=== PATIENT | male | born 1965 | race Hispanic/Latino ===

== ENCOUNTER 2025-06-02 12:14 | Inpatient (IN) | payer BC ==
[~2025-06-02] VITALS: Ht 175.3 cm; Wt 92.8 kg
--- NOTE | 2025-06-02 13:40 | NUR ---
Patient arrived to the unit via EMS stretcher. He was transferred to the bed and oriented to the room. Initial set of vitals was taken. Patient requested to have all four side rails on the bed up as he utilizes them for mobility purposes. Patient left with bed lock and low, with all four side rails up, and in no distress.
[2025-06-02 14:30] VITALS: O2SAT 99
[2025-06-02] MEDS ORDERED: PROCHLORPERAZINE 10MG/2ML INJ IV PRN (14:30)
[2025-06-02] MEDS ORDERED: PHENOL 177 ML BOTTLE PO PRN (14:30)
[2025-06-02] MEDS ORDERED: GLUCAGON 1MG KIT 1 MG ML IM PRN (14:30)
[2025-06-02] MEDS ORDERED: MAGNESIUM 2GM PREMIX 50ML 50 ML IV PRN (14:30)
[2025-06-02] MEDS ORDERED: PoTASSium chl 10% ELIXIR 20MEQ 20 MEQ/15 ML UDCUP PO PRN (14:30)
[2025-06-02] MEDS ORDERED: BACLOFEN 10 MG TABLET PO PRN (14:30)
[2025-06-02] MEDS ORDERED: DIPHENHYDRAMINE HCL 50 MG CAPSULE PO PRN (14:30)
[2025-06-02] MEDS ORDERED: DEXTROSE 50%-WATER 50 ML DISP.SYRIN IV PRN (14:30)
[2025-06-02 14:35] VITALS: BP 101/70; PULSE 86; RESP 16; TEMP 97.5
[2025-06-02 20:00] VITALS: BP 126/67; PULSE 94; RESP 16; TEMP 98.2; O2SAT 98
[2025-06-02] MEDS: ARGIN/GLUT/CAHMB/COLLAG/MV-MIN 1 EACH POWD.PACK PO SCH (21:00)
[2025-06-03] VITALS (25 sets, daily range): BP systolic 92–133; BP diastolic 59–80; PULSE 53–120; RESP 16–20; TEMP 96–97.9; O2SAT 94
[2025-06-03 08:36] LABS: IMMATURE GRANULOCYTE ABSOLUTE 0.04 K/uL (0-1); NUCLEATED RED BLOOD CELLS 0.0 % (0.0-0.19); PLATELET COUNT (AUTO) 200 K/uL (130-400); RED BLOOD CELL COUNT(AUTO) 5.16 MIL/uL (4.50-6.20); RED CELL DISTRIBUTION WIDTH 15.4 % (11.0-15.5); WHITE BLOOD COUNT (AUTO) 5.0 K/uL (4.8-10.8)
[2025-06-03] MEDS: LACTATED RINGERS 1000ML 1,000 ML IV ONE (08:40)
[2025-06-03 08:48] LABS: INR 0.96 (0.85-1.15)
[2025-06-03] MEDS: ENOXAPARIN SODIUM 40 MG/0.4 ML SYRINGE SQ SCH (08:53)
[2025-06-03 08:54] LABS: CREATININE 0.7 mg/dL (0.5-1.3); GLOMERULAR FILTR. RATE CALC 107.0 mL/min (>90); GLUCOSE,RANDOM 98.0 mg/dL (70-105); SODIUM SERUM 142.0 mmol/L (136-145); UREA NITROGEN, BLOOD 19.0 mg/dL (7-18)
[2025-06-03 08:59] LABS: ASPARTATE AMINOTRANSFERASE 25.0 U/L (10-37); TOTAL PROTEIN, SERUM 7.1 g/dL (6.0-8.3)
[2025-06-03] MEDS ORDERED: MIDAZOLAM HCL 1 MG/ML 2ML VIAL ONE (09:09)
--- NOTE | 2025-06-03 11:00 | NUR ---
PT OFF FLOOR FOR SURGERY. Addendum: 06/03/25 at 1626 by HOLDEN BORREGO PT Amended: Links added.
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
[2025-06-03] MEDS ORDERED: NEOSTIGMINE METHYLSULFATE 1MG/ML IV ONE (12:02)
[2025-06-03] MEDS ORDERED: GLYCOPYRROLATE 0.2 MG/ML 5 ML VIAL ONE (12:02)
--- NOTE | 2025-06-03 12:48 | OP ---
Operative Note: DATE OF PROCEDURE: 06/03/25 SURGEON: HA ABURTO MD ENTERPRISE MANAGER: [] ANESTHESIA: General endotracheal ANESTHESIOLOGIST/DIRECTOR OF FUNDRAISING: Bony JAIME PREOPERATIVE DIAGNOSIS: Sacral wounds POSTOPERATIVE DIAGNOSIS: Same needing diversion SYNOPSIS: [] PROCEDURE: Laparoscopic lysis of adhesions for greater than 30 minutes, laparoscopic loop colostomy creation ESTIMATED BLOOD LOSS: 10 cc INDICATIONS: Patient with nonhealing sacral ulcer. Needing diversion Devices left in place is ostomy bridge Specimen removed: Subcutaneous tissue DESCRIPTION OF PROCEDURE: The patient is brought to the operating room placed on the operating table in a supine position. Once general endotracheal anesthesia was achieved patient's abdomen is prepped and draped in sterile fashion. We then proceeded to create a transverse incision at the right upper quadrant. With a 5 mm Optiview went through the abdominal wall and into the abdominal cavity. Obtain pneumoperitoneum. There was large amount of omental adhesions. I placed another 5 mm trocar in the right flank. We were able to take down all the adhesions down. This took about 35-40 minutes to take down all the adhesions to the abdominal wall and in the pelvis. Once all the adhesi ons were taken down we identified the sigmoid colon. I placed another 5 mm trocar. And then we mobilized the sigmoid colon from lateral to medial. Making sure that we had enough length and once we had enough length we then created a circular incision at the left lower quadrant over top of the rectus muscle and on doing so there were some implants in the subcutaneous tissues so therefore the subcutaneous tissue was sent for specimen. We brought up the sigmoid colon and a loop fashion. Placed a bridge underneath the loop of colon to a avoid retraction. We then proceeded to mature it in a Leticia fashion with 3-0 Vicryl pop offs. With the laparoscope we confirmed that it was not twisted. We then removed all our trocars. Skin incisions were closed with a 4-0 Monocryl and Dermabond. Ostomy appliance were applied over top. Patient condition stable. All counts correct x2 at the end of the procedure HA ABURTO MD Jun 03, 2025 12:48
--- NOTE | 2025-06-03 13:55 | NUR ---
DCP:HOME Pt was previously at [facility] before coming into the hospital. Pt states that otherwise he lives alone in his home. Pt does use a wheelchair to ambulate. Pt does not report any home health or provider services. Pt states that he can complete ADLs independently. PCP is FANNY Leon and [facility] needs. At [place] pt states that he believes he is going back to [facility]. Addendum: 06/03/25 at 1359 by ARIEL CHANG SS Amended: Links added.
[2025-06-03] MEDS: LACTATED RINGERS 1000ML 1,000 ML IV SCH (14:20)
[2025-06-03] MEDS: SIMETHICONE 80 MG TAB.CHEW PO SCH (14:21)
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
--- NOTE | 2025-06-03 15:45 | NUR ---
[facility] Consult: Patient assessed by wound healing team. See wound assessment. Assessment and recommendations provided to primary nurse for vashe to left gluteal fold and medihoney to coccyx/ Education provided tp patient r/t wound, wound care treatment, and pressure ulcer intervention. Addendum: 06/05/25 at 1225 by FELIX ATWOOD RN RN/LINO Amended: Links added.
[2025-06-03] MEDS: BALSAM PERU/CASTOR OIL 60 GM TUBE TP SCH (20:34)
[2025-06-04] VITALS (7 sets, daily range): BP systolic 92–123; BP diastolic 51–75; PULSE 85–116; RESP 16–24; TEMP 97.5–98.8; O2SAT 98–100
[2025-06-04 05:21] LABS: NUCLEATED RED BLOOD CELLS 0.0 % (0.0-0.19); PLATELET COUNT (AUTO) 179.0 K/uL (130-400); RED BLOOD CELL COUNT(AUTO) 4.53 MIL/uL (4.50-6.20); RED CELL DISTRIBUTION WIDTH 15.7 % (11.0-15.5); WHITE BLOOD COUNT (AUTO) 8.1 K/uL (4.8-10.8)
[2025-06-04 05:32] LABS: CREATININE 0.7 mg/dL (0.5-1.3); GLOMERULAR FILTR. RATE CALC 107.0 mL/min (>90); GLUCOSE,RANDOM 99.0 mg/dL (70-105); SODIUM SERUM 140.0 mmol/L (136-145); UREA NITROGEN, BLOOD 17.0 mg/dL (7-18)
[2025-06-04] MEDS: PoTASSium chloRIDE 20MEQ ER 20 MEQ ERTAB PO PRN (06:46)
--- NOTE | 2025-06-04 09:16 | NUR ---
PT IS SITTING ON THE BED. NO S/S OF DISTRESS. STOMA DARK RED AND BEEFY. PLASTIC FOLD UNDER STOMA SECURED WITH STITCHES. SANGUINEOUS DRAINAGE NOTED FROM THE STOMA INSIDE THE COLOSTOMY BAG. 3 INCISIONS ON THE ABDOMEN WITH DERMABOND OPEN TO AIR. NO DRAINAGE. SUPRAPUBIC INSERTION SITE SECURED WITH GAUZE. NO DRAINAGE NOTED. CALL LIGHT WITHIN REACH. BED LOCKED AND LOW.
[2025-06-04] MEDS: HONEY 1 APPL/ML TUBE TP SCH (14:37)
--- NOTE | 2025-06-04 15:09 | PN ---
GENERAL SURGERY PROGRESS NOTE Date/Time Patient Seen: [06/04/2025 11:45 AM ] Interval History: [59-year-old male, postop day 1., laparoscopic loop colostomy creation for diversion of sacral ulcer by Dr. Pena Patient having expected soreness over surgical incision Colostomy producing a small amount of gas and bloody output Patient tolerating diet without any nausea or vomiting WBCs 8.1 H&H 12.3 and 38.5 ] Current Medications Medications (Trade) Dose Ordered Sig/Rj Route Start Time Stop Time Status Last Admin Dose Admin Docusate Sodium (COLace 100MG CAP) 100 mg BID PO 06/02/25 21:00 07/02/25 20:59 06/04/25 09:07 100 MG Enoxaparin Sodium (Lovenox) 40 mg DAILY SQ 06/03/25 09:00 07/03/25 08:59 06/04/25 09:09 40 MG Lactated Ringer's 1,000 ml @ 75 mls/hr [id number] IV 06/03/25 13:00 07/03/25 12:59 06/04/25 02:35 75 MLS/HR Leptospermum Honey (Medihoney) 1 appl DAILY TP 06/04/25 09:00 07/04/25 08:59 06/04/25 14:37 1 APPL Simethicone (Mylicon) 80 mg TID PO 06/03/25 14:00 07/03/25 13:59 06/04/25 14:37 80 MG Wound Care/ Dressing Products (Venelex Ointment) 1 GRAM TO AFFECTED AREA TW... BID TP 06/03/25 21:00 07/03/25 20:59 06/04/25 14:37 1 GM Physical Examination: GENERAL: [No acute distress, male, comfortably resting in bed.] HEAD: [Normocephalic.] EYES: [Normal conjunctiva] ENT: [Hearing grossly intact.] NECK: [Supple.] LUNGS: [Clear breath sounds bilaterally.] HEART: [Normal rate and rhythm] VASC: [Peripheral pulses +2 bilaterally.] ABD: [Bowel sounds normal, soft, left colostomy with healthy stoma, RLQ suprapubic saba in place.] EXT: [No edema.] SKIN: [Left buttock wound with macerated edges about 1.2 cm in depth, sacral wound with large amount of fibrous tissue to entire wound bed and some maceration to wound edges.] NEURO: [Awake, alert, and oriented x3. Quadraplegic] Vital Signs (last 8hr) Date Time Temp Pulse Resp B/P (MAP) Pulse Ox O2 Delivery O2 Flow Rate FiO2 06/04/25 11:03 98.8 85 18 104/67 98 Room Air 06/04/25 09:17 98 Room Air* 0 21 06/04/25 07:51 98.1 107 18 104/51 98 Room Air Laboratory: [ ] Hematology Labs: Test 06/04/25 05:06 06/03/25 08:26 Range/Units White Blood Count 8.1 # 4.8-10.8 K/uL Red Blood Count 4.53 4.50-6.20 MIL/uL Hemoglobin 12.3 L 14.0-18.0 g/dL Hematocrit 38.5 L 42-54 % Mean Corpuscular Volume 85.0 79-99 fL Mean Corpuscular Hemoglobin 27.2 27.0-33.0 pg Mean Corpuscular Hemoglobin Concent 31.9 L 32.0-36.0 g/dL Red Cell Distribution Width 15.7 H 11.0-15.5 % Platelet Count 179 130-400 K/uL Mean Platelet Volume 10.6 H 7.5-10.5 fL Nucleated Red Blood Cells 0.0 0.0-0.19 % Immature Granulocyte % (Auto) 0.8 0-1 % Neutrophils (%) (Auto) 51.6 40.0-77.0 % Lymphocytes (%) (Auto) 30.6 21.0-51.0 % Monocytes (%) (Auto) 8.1 3.0-13.0 % Eosinophils (%) (Auto) 8.1 H 0.0-8.0 % Basophils (%) (Auto) 0.8 0.0-5.0 % Neutrophils # (Auto) 2.6 1.8-7.7 K/uL Lymphocytes # (Auto) 1.5 1.0-4.8 K/uL Monocytes # (Auto) 0.4 0.1-1.0 K/uL Eosinophils # (Auto) 0.41 0.00-0.70 K/uL Basophils # (Auto) 0.04 0.00-0.20 K/uL Absolute Immature Granulocyte (auto 0.04 0-1 K/uL Chemistry Labs: Test 06/04/25 05:06 06/03/25 08:26 Range/Units Sodium Level 140 136-145 mmol/L Potassium Level 3.7 3.5-5.1 mmol/L Chloride Level 105 101-111 mmol/L Carbon Dioxide Level 27 21-32 mmol/L Blood Urea Nitrogen 17 7-18 mg/dL Creatinine 0.7 0.5-1.3 mg/dL Glomerular Filtration Rate Calc 107 >90 mL/min Random Glucose 99 70-105 mg/dL Total Calcium 8.2 L 8.5-10.1 mg/dL Magnesium Level 2.00 1.80-2.40 mg/dL Total Bilirubin 0.3 0.2-1.0 mg/dL Aspartate Amino Transf (AST/SGOT) 25 10-37 U/L Alanine Aminotransferase (ALT/SGPT) 46 12-78 U/L Alkaline Phosphatase 132 50-136 U/L Total Protein 7.1 6.0-8.3 g/dL Albumin 3.3 L 3.5-5.0 g/dL Coagulation Labs: Test 06/03/25 08:26 Range/Units Prothrombin Time 10.2 9.6-11.6 SEC Prothromb Time International Ratio 0.96 0.85-1.15 Activated Partial Thromboplast Time 35.7 H 26.3-35.5 SEC Diagnostics / Radiology: [Copy/Paste Echos/Imaging Report here] Impression and Plan: [ 59-year-old male, postop day 1., laparoscopic loop colostomy creation for diversion of sacral ulcer by Dr. Pena Colostomy is producing a small amount of gas with some bloody output Patient tolerating diet without any nausea or vomiting Stable H&H Continue with wound care to left buttock and sacral area as recommended by wound care team Repeat labs in a.m. Continue with IV antibiotics Case management consult for plan to discharge patient back to [facility] when accepted Surgical team will continue to follow Dr. Pena updated on patient's status Surgical case has been discussed with my supervising physician Plan of care was formulated and agreed upon We appreciate hospitalist team for allowing us to participate in this patient's care Greater than 45 minutes spent examining patient, reviewing chart and working on documentation] ATTESTATION BY PHYSICIAN I have seen and examined the patient. I reviewed the documentation, medical decision making, and treatment plan as noted by the mid-level provider above. I agree with the findings and plan of care. MD JORDAN SOARES [facility] Jun 04, 2025 15:09
[2025-06-04] MEDS ORDERED: MAG/ALUM/SIMETH 30 ML UDCUP PO PRN (16:30)
[2025-06-04] MEDS ORDERED: TAMS-55 PO (16:54)
[2025-06-04] MEDS ORDERED: METR-172 PO (16:57)
[2025-06-04] MEDS ORDERED: SACU1TAB PO (16:57)
[2025-06-04] MEDS ORDERED: IBUP-1492 PO (16:57)
[2025-06-04] MEDS ORDERED: DONE-51 PO (16:57)
[2025-06-04] MEDS ORDERED: FAMO40TA7 PO (16:57)
[2025-06-04] MEDS: MAG/ALUM/SIMETH 30 ML UDCUP PO PRN (17:17)
--- NOTE | 2025-06-04 17:37 | CONS ---
CONSULTATION NOTE Date of Service: Jun 04, 2025 Reason for Consultation: [ ] Requesting Physician: [ ] HISTORY OF PRESENT ILLNESS: [ ] REVIEW OF SYSTEMS CONSTITUTIONAL: Denies fever, chills, or fatigue. HEAD/FACE: No signs of trauma. EENT: Denies eye pain, blurred vision, double vision, or light sensitivity. RESPIRATORY: Denies shortness of breath, cough, wheezing CARDIOVASCULAR: Denies chest pain, palpitation, syncope GASTROINTESTINAL/ABDOMINAL: Denies abdominal pain, constipation, diarrhea, nausea or vomiting GENITOURINARY: Denies dysuria or hematuria. MUSCULOSKELETAL: Denies joint pain, tenderness, or trauma. INTEGUMENTARY: Denies rash or itchiness NEUROLOGICAL/PSYCH: Denies anxiety, depression, heat or cold intolerance. PAST MEDICAL HISTORY: [ ] PAST SURGICAL HISTORY: [ ] PAST SOCIAL HISTORY: [ ] FAMILY HISTORY: [ ] Coded Allergies: cephalexin (Unverified Allergy, Unknown, 06/02/25) iodine (Unverified Allergy, Unknown, 06/02/25) PHYSICAL EXAM EYES: Anicteric. Pupils equal and reactive. HENT: No oral thrush seen, moist Oral mucosa NECK: Supple, no JVD or thyromegaly. LUNGS: Good air entry. No rales, no rhonchi. CARDIOVASCULAR: S1, S2 regular. No murmur heard. ABDOMEN: Soft, non tender, bowel sounds present, no organomegaly CENTRAL NERVOUS SYSTEM: Awake, alert, oriented x 3. No focal deficits. SKIN: No rashes, no swelling. LYMPHATICS: No peripheral lymphadenopathy MUSCULOSKELETAL: No joint swelling, erythema or tenderness. EXTREMITIES: No cyanosis or clubbing BACK: No deformity, no pressure ulcer. GENITOURINARY: No dysuria or hematuria Vital Sign (Last 24 Hours) 06/04/25 06/04/25 09:17 16:00 Temp 98.8 Pulse 86 Resp 16 B/P (MAP) 101/68 Pulse Ox 99 O2 Delivery Room Air O2 Flow Rate 0 FiO2 21 Intake & Output (last 24hrs) 06/03/25 06/03/25 06/04/25 15:00 23:00 07:00 Intake Total 300 ml Output Total 400 ml 830 ml Balance -100 ml -830 ml LABS: Laboratory: Test 06/04/25 05:06 06/03/25 08:26 Range/Units White Blood Count 8.1 # 4.8-10.8 K/uL Red Blood Count 4.53 4.50-6.20 MIL/uL Hemoglobin 12.3 L 14.0-18.0 g/dL Hematocrit 38.5 L 42-54 % Mean Corpuscular Volume 85.0 79-99 fL Mean Corpuscular Hemoglobin 27.2 27.0-33.0 pg Mean Corpuscular Hemoglobin Concent 31.9 L 32.0-36.0 g/dL Red Cell Distribution Width 15.7 H 11.0-15.5 % Platelet Count 179 130-400 K/uL Mean Platelet Volume 10.6 H 7.5-10.5 fL Nucleated Red Blood Cells 0.0 0.0-0.19 % Sodium Level 140 136-145 mmol/L Potassium Level 3.7 3.5-5.1 mmol/L Chloride Level 105 101-111 mmol/L Carbon Dioxide Level 27 21-32 mmol/L Blood Urea Nitrogen 17 7-18 mg/dL Creatinine 0.7 0.5-1.3 mg/dL Glomerular Filtration Rate Calc 107 >90 mL/min Random Glucose 99 70-105 mg/dL Total Calcium 8.2 L 8.5-10.1 mg/dL Magnesium Level 2.00 1.80-2.40 mg/dL Immature Granulocyte % (Auto) 0.8 0-1 % Neutrophils (%) (Auto) 51.6 40.0-77.0 % Lymphocytes (%) (Auto) 30.6 21.0-51.0 % Monocytes (%) (Auto) 8.1 3.0-13.0 % Eosinophils (%) (Auto) 8.1 H 0.0-8.0 % Basophils (%) (Auto) 0.8 0.0-5.0 % Neutrophils # (Auto) 2.6 1.8-7.7 K/uL Lymphocytes # (Auto) 1.5 1.0-4.8 K/uL Monocytes # (Auto) 0.4 0.1-1.0 K/uL Eosinophils # (Auto) 0.41 0.00-0.70 K/uL Basophils # (Auto) 0.04 0.00-0.20 K/uL Absolute Immature Granulocyte (auto 0.04 0-1 K/uL Prothrombin Time 10.2 9.6-11.6 SEC Prothromb Time International Ratio 0.96 0.85-1.15 Activated Partial Thromboplast Time 35.7 H 26.3-35.5 SEC Total Bilirubin 0.3 0.2-1.0 mg/dL Aspartate Amino Transf (AST/SGOT) 25 10-37 U/L Alanine Aminotransferase (ALT/SGPT) 46 12-78 U/L Alkaline Phosphatase 132 50-136 U/L Total Protein 7.1 6.0-8.3 g/dL Albumin 3.3 L 3.5-5.0 g/dL DIAGNOSTICS / RADIOLOGY: [ ] PROBLEM LIST : unstageable ulcer to coccyx Stage IV ulcer to left gluteal fold PLAN: Wound care to Coccyx: Cleanse with normal saline, pat dry, apply medihoney, cover with alleyn, change daily and prn Wound care to left gluteal fold: Cleanse with normal saline, pat dry, apply vashe wet to dry, cover with gauze, abd pad secure with tape change bid and prn BRENTON BERTRAND PATIENT RELATIONS SPECIALIST Jun 04, 2025 17:37
--- NOTE | 2025-06-04 18:02 | NUR ---
PT WAS REINFORCED EDUCATION ON THE IMPORTANCE OF UTILIZING THE IS. PT GOING UP TO 1,200MLS. PT HAD EMESIS EPISODE OF ABOUT 20MLS DR. MOTLEY WAS NOTIFIED. ORDERED PHENERGAN 25 MG IM Q8H PRN AND ZOFRAN 4MG PO Q6H PRN. WILL CONTINUE TO MONITOR.
--- NOTE | 2025-06-04 18:45 | NUR ---
PT HAD ANOTHER EMESIS EPISOD. DID NOT TOLERATE THE ZOFRAN.
[2025-06-04] MEDS: PROMETHAZINE HCL 25 MG/ML 1ML AMPULE IM PRN (18:55)
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
[2025-06-05] VITALS (7 sets, daily range): BP systolic 91–108; BP diastolic 60–65; PULSE 112–121; RESP 18–24; TEMP 97.6–98.6; O2SAT 95–96
[2025-06-05 05:21] LABS: IMMATURE GRANULOCYTE ABSOLUTE 0.07 K/uL (0-1); NUCLEATED RED BLOOD CELLS 0.0 % (0.0-0.19); PLATELET COUNT (AUTO) 207 K/uL (130-400); RED BLOOD CELL COUNT(AUTO) 5.22 MIL/uL (4.50-6.20); RED CELL DISTRIBUTION WIDTH 16.0 % (11.0-15.5); WHITE BLOOD COUNT (AUTO) 13.8 K/uL (4.8-10.8)
[2025-06-05 05:36] LABS: CREATININE 0.9 mg/dL (0.5-1.3); GLOMERULAR FILTR. RATE CALC 99.0 mL/min (>90); GLUCOSE,RANDOM 97.0 mg/dL (70-105); SODIUM SERUM 141.0 mmol/L (136-145); UREA NITROGEN, BLOOD 18.0 mg/dL (7-18)
[2025-06-05] MEDS ORDERED: PHARMACY COMMUNICATION MISC SCH (12:00)
[2025-06-05] MEDS ORDERED: VANCOMYCIN PROTOCOL PER PHARMACY IV SCH (12:00)
[2025-06-05] MEDS: MEROPENEM 1GM 1 GM VIAL IVPB SCH (13:00)
[2025-06-05] MEDS: VANCOMYCIN 1.75 GM/250 ML BAG 250 ML IV ONE (15:00)
[2025-06-05 17:03] LABS: INR 1.08 (0.85-1.15)
--- NOTE | 2025-06-05 17:09 | NUR ---
ANTIBIOTICS NOT ADMINISTERED, NO IV ACCESS
--- NOTE | 2025-06-05 17:11 | NUR ---
NO IV ACCESS
--- NOTE | 2025-06-05 17:24 | PN ---
This is a 51-year-old male status post diverting colostomy Interval history: This 51-year-old male seen in his room resting Patient has been able to tolerate diet due to significant reflux and heartburn Ostomy functioning properly Patient continues with the IV fluids IV antibiotics pain being managed well Physical exam General: Awake alert and oriented Heart: Regular rate and rhythm} Lungs: Clear to auscultation no distress Abdomen: [Soft, nontender, nondistended ostomy productive Assessment : This is a 59-year-old male status post diverting colostomy by Dr. Pena Plan: At this point in time patient will be started on Pepcid as well as sucralfate to assist with reflux Patient to continue working with physical therapy Continue to monitor ostomy output No further surgical intervention planned at this time Before discharge patient will need to be tolerating diet Dr. Pena to be updated in patient's status and nursing report any further acute events Surgical case has been discussed with my supervising physician in the above plan was formulated and agreed upon We appreciate the hospitalist team for us to participate in patient's care. Greater than 45 minutes of time spent patient, reviewing chart, working on documentation Vitals/Labs Vital Signs Date Time Temp Pulse Resp B/P (MAP) Pulse Ox O2 Delivery O2 Flow Rate FiO2 06/05/25 16:59 97.5 113 18 92/64 96 Room Air 06/05/25 08:21 0 21 Laboratory Tests 06/05/25 04:56 Medications Current Medications Docusate Sodium 100 mg BID PO Last administered on 06/05/25at 08:21; Start 06/02/25 at 21:00; Stop 07/02/25 at 20:59 Enoxaparin Sodium 40 mg DAILY SQ Last administered on 06/05/25at 08:23; Start 06/03/25 at 09:00; Stop 07/03/25 at 08:59 Acetaminophen 650 mg Q6H PRN PO; Start 06/02/25 at 14:30; Stop 07/02/25 at 14:29 Tramadol HCl 50 mg Q6H PRN PO Last administered on 06/05/25at 13:52; Start 06/02/25 at 14:30; Stop 06/07/25 at 14:29 Phenol 1 SPRAY Q1H PRN PO; Start 06/02/25 at 14:30; Stop 07/02/25 at 14:29 Ondansetron HCl 4 mg Q8H PRN PO; Start 06/02/25 at 14:30; Stop 06/03/25 at 12:54; Status DC Prochlorperazine Edisylate 10 mg Q6H PRN IV; Start 06/02/25 at 14:30; Stop 07/02/25 at 14:29 Potassium Chloride 100 ml @ 100 mls/hr AD PRN IV; Start 06/02/25 at 14:30; Stop 07/02/25 at 14:29 Potassium Chloride 20 meq AD PRN PO; Start 06/02/25 at 14:30; Stop 07/02/25 at 14:29 Potassium Chloride 20 meq AD PRN PO Last administered on 06/05/25at 13:51; Start 06/02/25 at 14:30; Stop 07/02/25 at 14:29 Potassium Chloride 100 ml @ 50 mls/hr AD PRN IV; Start 06/02/25 at 14:30; Stop 06/05/25 at 12:59; Status DC Magnesium Sulfate 50 ml @ 0 mls/hr PROTOCOL PRN IV; Start 06/02/25 at 14:30; Stop 07/02/25 at 14:29 Potassium Phos/ Sodium Phos 1 packet BID PRN PO; Start 06/02/25 at 14:30; Stop 07/02/25 at 14:29 Midodrine 10 mg TID PRN PO; Start 06/02/25 at 14:30; Stop 07/02/25 at 14:29 Hydralazine HCl 5 mg Q6H PRN IV; Start 06/02/25 at 14:30; Stop 07/02/25 at 14:29 Dextrose 50 ml AD PRN IV; Start 06/02/25 at 14:30; Stop 07/02/25 at 14:29 Glucagon 1 mg AD PRN IM; Start 06/02/25 at 14:30; Stop 07/02/25 at 14:29 Baclofen 10 mg TID PRN PO; Start 06/02/25 at 14:30; Stop 07/02/25 at 14:29 Diphenhydramine HCl 25 mg BID PRN PO; Start 06/02/25 at 14:30; Stop 07/02/25 at 14:29 Morphine Sulfate 2 mg Q6H PRN IVP; Start 06/02/25 at 14:30; Stop 06/03/25 at 12:54; Status DC Cefazolin Sodium 2 gm STK-MED ONCE .ROUTE; Start 06/03/25 at 08:19; Stop 06/03/25 at 08:19; Status DC Lactated Ringer's 1,000 ml @ As Directed STK-MED ONCE IV Last administered on 06/03/25at 08:40; Start 06/03/25 at 08:19; Stop 06/03/25 at 08:19; Status DC Bupivacaine HCl 2.5 mg STK-MED ONCE IJ; Start 06/03/25 at 08:30; Stop 06/03/25 at 08:30; Status DC Fentanyl Citrate 100 mcg STK-MED ONCE .ROUTE; Start 06/03/25 at 09:09; Stop 06/03/25 at 09:09; Status DC Midazolam HCl 2 mg STK-MED ONCE .ROUTE; Start 06/03/25 at 09:09; Stop 06/03/25 at 09:09; Status DC Propofol 200 mg STK-MED ONCE IV; Start 06/03/25 at 09:25; Stop 06/03/25 at 09:26; Status DC Rocuronium [place] 50 mg STK-MED ONCE .ROUTE; Start 06/03/25 at 09:26; Stop 06/03/25 at 09:26; Status DC Ondansetron HCl 4 mg STK-MED ONCE .ROUTE; Start 06/03/25 at 09:29; Stop 06/03/25 at 09:30; Status DC Metronidazole/ Sodium Chloride 100 ml @ As Directed STK-MED ONCE .ROUTE; Start 06/03/25 at 10:29; Stop 06/03/25 at 10:29; Status DC Levofloxacin/ Dextrose 100 ml @ As Directed STK-MED ONCE .ROUTE; Start 06/03/25 at 10:34; Stop 06/03/25 at 10:34; Status DC Glycopyrrolate 1 mg STK-MED ONCE .ROUTE; Start 06/03/25 at 12:02; Stop 06/03/25 at 12:02; Status DC Neostigmine Methylsulfate 10 mg STK-MED ONCE IV; Start 06/03/25 at 12:02; Stop 06/03/25 at 12:02; Status DC Fentanyl Citrate 100 mcg STK-MED ONCE .ROUTE; Start 06/03/25 at 12:06; Stop 06/03/25 at 12:07; Status DC Lactated Ringer's 1,000 ml @ 75 mls/hr [id number] IV Last administered on 06/05/25at 06:21; Start 06/03/25 at 13:00; Stop 07/03/25 at 12:59 Morphine Sulfate 4 mg Q3H PRN IV; Start 06/03/25 at 13:00; Stop 06/10/25 at 12:59 Ondansetron HCl 4 mg Q4H PRN IVP; Start 06/03/25 at 13:00; Stop 06/04/25 at 18:20; Status DC Simethicone 80 mg TID PO Last administered on 06/05/25at 17:07; Start 06/03/25 at 14:00; Stop 07/03/25 at 13:59 Docusate Sodium 100 mg BID PRN PO; Start 06/03/25 at 13:00; Stop 06/03/25 at 12:55; Status DC Leptospermum Honey 1 appl DAILY TP Last administered on 06/05/25at 08:21; Start 06/04/25 at 09:00; Stop 07/04/25 at 08:59 Wound Care/ Dressing Products 1 GRAM TO AFFECTED AREA TW... BID TP Last administered on 06/05/25at 08:23; Start 06/03/25 at 21:00; Stop 07/03/25 at 20:59 Acetaminophen 650 mg Q6H PRN PO Last administered on 06/04/25at 11:22; Start 06/04/25 at 11:00; Stop 07/04/25 at 10:59 Al Hydroxide/Mg Hydroxide 15 ml Q8H PRN PO; Start 06/04/25 at 16:30; Stop 06/04/25 at 17:13; Status DC Al Hydroxide/Mg Hydroxide 15 ml Q8H PRN PO Last administered on 06/04/25at 17:17; Start 06/04/25 at 17:30; Stop 07/04/25 at 17:29 Promethazine HCl 25 mg Q8H PRN IM Last administered on 06/04/25at 18:55; Start 06/04/25 at 18:30; Stop 07/04/25 at 18:29 Ondansetron HCl 4 mg Q6H PRN PO Last administered on 06/04/25at 18:34; Start 06/04/25 at 18:30; Stop 07/04/25 at 18:29 Vancomycin HCl 1 each AD IV; Start 06/05/25 at 12:00; Stop 06/19/25 at 11:59 Pharmacy Profile Note 1 each ONCE MISC; Start 06/05/25 at 12:00; Stop 06/05/25 at 12:35; Status DC Meropenem 1 gm Q8H IVPB; Start 06/05/25 at 13:00; Stop 06/15/25 at 12:59 Vancomycin HCl 250 ml @ 125 mls/hr ONCE ONCE IV; Start 06/05/25 at 15:00; Stop 06/05/25 at 16:59; Status DC Vancomycin HCl 250 ml @ 125 mls/hr Q12H IV; Start 06/06/25 at 03:00; Stop 06/16/25 at 02:59 Pantoprazole Sodium 40 mg DAILY PO; Start 06/06/25 at 09:00; Stop 07/06/25 at 08:59 Sucralfate 1 gm Q6H6 PO; Start 06/05/25 at 18:00; Stop 07/05/25 at 17:59; Status UNV Famotidine 20 mg BID PO; Start 06/05/25 at 21:00; Stop 07/05/25 at 20:59; Status UNV CELY BOWERS Jr. PAC Jun 05, 2025 17:24
[2025-06-05] MEDS: SUCRALFATE 1 GM/10 ML PO SCH (18:14)
--- NOTE | 2025-06-05 18:15 | NUR ---
NO IV ACCESS
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
[2025-06-05] MEDS: FAMOTIDINE 20MG TAB PO SCH (20:15)
[2025-06-06] VITALS (8 sets, daily range): BP systolic 99–121; BP diastolic 47–81; PULSE 92–113; RESP 16–20; TEMP 97.5–98.4; O2SAT 92–98
[2025-06-06] MEDS: VANCOMYCIN 1.25 GM/250 ML BAG 250 ML IV SCH (02:32)
[2025-06-06 05:09] LABS: CREATININE 0.9 mg/dL (0.5-1.3); GLOMERULAR FILTR. RATE CALC 99.0 mL/min (>90); GLUCOSE,RANDOM 115.0 mg/dL (70-105); SODIUM SERUM 141.0 mmol/L (136-145); UREA NITROGEN, BLOOD 29.0 mg/dL (7-18)
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
--- NOTE | 2025-06-06 14:00 | NUR ---
[facility] Follow-up: Patient re-assessed by wound healing team, Wound improving. Assessment and recommendations provided to primary nurse Education provided. Addendum: 06/06/25 at 1633 by FELIX ATWOOD RN RN/ Amended: Links added.
--- NOTE | 2025-06-06 16:09 | PN ---
This is a 59-year-old male with diverting colostomy postop day three Interval history: This 51-year-old male seen in his room resting Patient reporting no significant abdominal discomfort at this time Patient is taking in very little oral intake due to concerns of reflux Patient is started on Pepcid and Carafate yesterday Ostomy functioning properly Physical exam General: Awake alert and oriented Heart: Regular rate and rhythm} Lungs: Clear to auscultation no distress Abdomen: [Soft, nontender, nondistended productive ostomy Assessment : This is a 59-year-old male status post diverting colostomy Plan: At this point in time patient is to continue with current medical regimen to assist with reflux Patient capable being discharged to [facility] on full liquids we will continue to follow No emergent surgical intervention at this time Continue with hospitalist recommendations Dr. Pena to be updated on patient's status Surgical case has been discussed with my supervising physician in the above plan was formulated and agreed upon We appreciate the hospitalist team for us to participate in patient's care. Greater than 45 minutes of time spent patient, reviewing chart, working on documentation Vitals/Labs Vital Signs Date Time Temp Pulse Resp B/P (MAP) Pulse Ox O2 Delivery O2 Flow Rate FiO2 06/06/25 12:00 97.7 108 18 121/47 94 Room Air 06/05/25 20:00 0 21 Laboratory Tests 06/06/25 04:27 Medications Current Medications Docusate Sodium 100 mg BID PO Last administered on 06/06/25at 08:37; Start 06/02/25 at 21:00; Stop 07/02/25 at 20:59 Enoxaparin Sodium 40 mg DAILY SQ Last administered on 06/06/25at 08:38; Start 06/03/25 at 09:00; Stop 07/03/25 at 08:59 Acetaminophen 650 mg Q6H PRN PO; Start 06/02/25 at 14:30; Stop 07/02/25 at 14:29 Tramadol HCl 50 mg Q6H PRN PO Last administered on 06/06/25at 12:55; Start 06/02/25 at 14:30; Stop 06/07/25 at 14:29 Phenol 1 SPRAY Q1H PRN PO; Start 06/02/25 at 14:30; Stop 07/02/25 at 14:29 Ondansetron HCl 4 mg Q8H PRN PO; Start 06/02/25 at 14:30; Stop 06/03/25 at 12:54; Status DC Prochlorperazine Edisylate 10 mg Q6H PRN IV; Start 06/02/25 at 14:30; Stop 07/02/25 at 14:29 Potassium Chloride 100 ml @ 100 mls/hr AD PRN IV; Start 06/02/25 at 14:30; Stop 07/02/25 at 14:29 Potassium Chloride 20 meq AD PRN PO; Start 06/02/25 at 14:30; Stop 07/02/25 at 14:29 Potassium Chloride 20 meq AD PRN PO Last administered on 06/06/25at 12:50; Start 06/02/25 at 14:30; Stop 07/02/25 at 14:29 Potassium Chloride 100 ml @ 50 mls/hr AD PRN IV; Start 06/02/25 at 14:30; Stop 06/05/25 at 12:59; Status DC Magnesium Sulfate 50 ml @ 0 mls/hr PROTOCOL PRN IV; Start 06/02/25 at 14:30; Stop 07/02/25 at 14:29 Potassium Phos/ Sodium Phos 1 packet BID PRN PO; Start 06/02/25 at 14:30; Stop 07/02/25 at 14:29 Midodrine 10 mg TID PRN PO; Start 06/02/25 at 14:30; Stop 07/02/25 at 14:29 Hydralazine HCl 5 mg Q6H PRN IV; Start 06/02/25 at 14:30; Stop 07/02/25 at 14:29 Dextrose 50 ml AD PRN IV; Start 06/02/25 at 14:30; Stop 07/02/25 at 14:29 Glucagon 1 mg AD PRN IM; Start 06/02/25 at 14:30; Stop 07/02/25 at 14:29 Baclofen 10 mg TID PRN PO; Start 06/02/25 at 14:30; Stop 07/02/25 at 14:29 Diphenhydramine HCl 25 mg BID PRN PO; Start 06/02/25 at 14:30; Stop 07/02/25 at 14:29 Morphine Sulfate 2 mg Q6H PRN IVP; Start 06/02/25 at 14:30; Stop 06/03/25 at 12:54; Status DC Cefazolin Sodium 2 gm STK-MED ONCE .ROUTE; Start 06/03/25 at 08:19; Stop 06/03/25 at 08:19; Status DC Lactated Ringer's 1,000 ml @ As Directed STK-MED ONCE IV Last administered on 06/03/25at 08:40; Start 06/03/25 at 08:19; Stop 06/03/25 at 08:19; Status DC Bupivacaine HCl 2.5 mg STK-MED ONCE IJ; Start 06/03/25 at 08:30; Stop 06/03/25 at 08:30; Status DC Fentanyl Citrate 100 mcg STK-MED ONCE .ROUTE; Start 06/03/25 at 09:09; Stop 06/03/25 at 09:09; Status DC Midazolam HCl 2 mg STK-MED ONCE .ROUTE; Start 06/03/25 at 09:09; Stop 06/03/25 at 09:09; Status DC Propofol 200 mg STK-MED ONCE IV; Start 06/03/25 at 09:25; Stop 06/03/25 at 09:26; Status DC Rocuronium Bath 50 mg STK-MED ONCE .ROUTE; Start 06/03/25 at 09:26; Stop 06/03/25 at 09:26; Status DC Ondansetron HCl 4 mg STK-MED ONCE .ROUTE; Start 06/03/25 at 09:29; Stop 06/03/25 at 09:30; Status DC Metronidazole/ Sodium Chloride 100 ml @ As Directed STK-MED ONCE .ROUTE; Start 06/03/25 at 10:29; Stop 06/03/25 at 10:29; Status DC Levofloxacin/ Dextrose 100 ml @ As Directed STK-MED ONCE .ROUTE; Start 06/03/25 at 10:34; Stop 06/03/25 at 10:34; Status DC Glycopyrrolate 1 mg STK-MED ONCE .ROUTE; Start 06/03/25 at 12:02; Stop 06/03/25 at 12:02; Status DC Neostigmine Methylsulfate 10 mg STK-MED ONCE IV; Start 06/03/25 at 12:02; Stop 06/03/25 at 12:02; Status DC Fentanyl Citrate 100 mcg STK-MED ONCE .ROUTE; Start 06/03/25 at 12:06; Stop 06/03/25 at 12:07; Status DC Lactated Ringer's 1,000 ml @ 75 mls/hr [id number] IV Last administered on 06/06/25at 08:35; Start 06/03/25 at 13:00; Stop 07/03/25 at 12:59 Morphine Sulfate 4 mg Q3H PRN IV; Start 06/03/25 at 13:00; Stop 06/10/25 at 12:59 Ondansetron HCl 4 mg Q4H PRN IVP; Start 06/03/25 at 13:00; Stop 06/04/25 at 18:20; Status DC Simethicone 80 mg TID PO Last administered on 06/06/25at 08:35; Start 06/03/25 at 14:00; Stop 07/03/25 at 13:59 Docusate Sodium 100 mg BID PRN PO; Start 06/03/25 at 13:00; Stop 06/03/25 at 12:55; Status DC Leptospermum Honey 1 appl DAILY TP Last administered on 06/05/25at 08:21; Start 06/04/25 at 09:00; Stop 07/04/25 at 08:59 Wound Care/ Dressing Products 1 GRAM TO AFFECTED AREA TW... BID TP Last administered on 06/05/25at 08:23; Start 06/03/25 at 21:00; Stop 07/03/25 at 20:59 Acetaminophen 650 mg Q6H PRN PO Last administered on 06/04/25at 11:22; Start 06/04/25 at 11:00; Stop 07/04/25 at 10:59 Al Hydroxide/Mg Hydroxide 15 ml Q8H PRN PO; Start 06/04/25 at 16:30; Stop 06/04/25 at 17:13; Status DC Al Hydroxide/Mg Hydroxide 15 ml Q8H PRN PO Last administered on 06/04/25at 17:17; Start 06/04/25 at 17:30; Stop 07/04/25 at 17:29 Promethazine HCl 25 mg Q8H PRN IM Last administered on 06/04/25at 18:55; Start 06/04/25 at 18:30; Stop 07/04/25 at 18:29 Ondansetron HCl 4 mg Q6H PRN PO Last administered on 06/04/25at 18:34; Start 06/04/25 at 18:30; Stop 07/04/25 at 18:29 Vancomycin HCl 1 each AD IV; Start 06/05/25 at 12:00; Stop 06/19/25 at 11:59 Pharmacy Profile Note 1 each ONCE MISC; Start 06/05/25 at 12:00; Stop 06/05/25 at 12:35; Status DC Meropenem 1 gm Q8H IVPB Last administered on 06/06/25at 12:49; Start 06/05/25 at 13:00; Stop 06/15/25 at 12:59 Vancomycin HCl 250 ml @ 125 mls/hr ONCE ONCE IV; Start 06/05/25 at 15:00; Stop 06/05/25 at 16:59; Status DC Vancomycin HCl 250 ml @ 125 mls/hr Q12H IV Last administered on 06/06/25at 02:32; Start 06/06/25 at 03:00; Stop 06/16/25 at 02:59 Pantoprazole Sodium 40 mg DAILY PO; Start 06/06/25 at 09:00; Stop 06/05/25 at 17:25; Status DC Sucralfate 1 gm Q6H6 PO Last administered on 06/06/25at 12:49; Start 06/05/25 at 18:00; Stop 07/05/25 at 17:59 Famotidine 20 mg BID PO Last administered on 06/06/25at 08:35; Start 06/05/25 at 21:00; Stop 06/06/25 at 11:05; Status DC Pantoprazole Sodium 40 mg BID PO; Start 06/06/25 at 21:00; Stop 07/06/25 at 20:59 CELY BOWERS Jr. PAC Jun 06, 2025 16:09
--- NOTE | 2025-06-06 16:53 | PN ---
PROGRESS NOTE Date of Service: Jun 06, 2025 Time of Service: 16:53 SUBJECTIVE: [ ] REVIEW OF SYSTEMS CONSTITUTIONAL: Denies fever, chills, or fatigue. HEAD/FACE: No signs of trauma. EENT: Denies eye pain, blurred vision, double vision, or light sensitivity. RESPIRATORY: Denies shortness of breath, cough, wheezing CARDIOVASCULAR: Denies chest pain, palpitation, syncope GASTROINTESTINAL/ABDOMINAL: Denies abdominal pain, constipation, diarrhea, nausea or vomiting GENITOURINARY: Denies dysuria or hematuria. MUSCULOSKELETAL: Denies joint pain, tenderness, or trauma. INTEGUMENTARY: Denies rash or itchiness NEUROLOGICAL/PSYCH: Denies anxiety, depression, heat or cold intolerance. PHYSICAL EXAM EYES: Anicteric. Pupils equal and reactive. HENT: No oral thrush seen, moist Oral mucosa NECK: Supple, no JVD or thyromegaly. LUNGS: Good air entry. No rales, no rhonchi. CARDIOVASCULAR: S1, S2 regular. No murmur heard. ABDOMEN: Soft, non tender, bowel sounds present, no organomegaly CENTRAL NERVOUS SYSTEM: Awake, alert, oriented x 3. No focal deficits. SKIN: No rashes, no swelling. LYMPHATICS: No peripheral lymphadenopathy MUSCULOSKELETAL: No joint swelling, erythema or tenderness. EXTREMITIES: No cyanosis or clubbing BACK: No deformity, no pressure ulcer. GENITOURINARY: No dysuria or hematuria Vital Signs (last 8hr) Date Time Temp Pulse Resp B/P (MAP) Pulse Ox O2 Delivery O2 Flow Rate FiO2 06/06/25 16:00 98.4 103 18 118/74 97 Room Air 06/06/25 12:00 97.7 108 18 121/47 94 Room Air LABS: Laboratory: Test 06/06/25 04:27 06/05/25 16:48 06/05/25 04:56 Range/Units Sodium Level 141 136-145 mmol/L Potassium Level 3.8 3.5-5.1 mmol/L Chloride Level 103 101-111 mmol/L Carbon Dioxide Level 25 21-32 mmol/L Blood Urea Nitrogen 29 H 7-18 mg/dL Creatinine 0.9 0.5-1.3 mg/dL Glomerular Filtration Rate Calc 99 >90 mL/min Random Glucose 115 H 70-105 mg/dL Total Calcium 9.2 8.5-10.1 mg/dL Prothrombin Time 11.4 9.6-11.6 SEC Prothromb Time International Ratio 1.08 0.85-1.15 White Blood Count 13.8 #H 4.8-10.8 K/uL Red Blood Count 5.22 4.50-6.20 MIL/uL Hemoglobin 14.3 14.0-18.0 g/dL Hematocrit 45.3 42-54 % Mean Corpuscular Volume 86.8 79-99 fL Mean Corpuscular Hemoglobin 27.4 27.0-33.0 pg Mean Corpuscular Hemoglobin Concent 31.6 L 32.0-36.0 g/dL Red Cell Distribution Width 16.0 H 11.0-15.5 % Platelet Count 207 130-400 K/uL Mean Platelet Volume 10.4 7.5-10.5 fL Immature Granulocyte % (Auto) 0.5 0-1 % Neutrophils (%) (Auto) 83.5 H 40.0-77.0 % Lymphocytes (%) (Auto) 7.5 L 21.0-51.0 % Monocytes (%) (Auto) 8.2 3.0-13.0 % Eosinophils (%) (Auto) 0.1 0.0-8.0 % Basophils (%) (Auto) 0.2 0.0-5.0 % Neutrophils # (Auto) 11.5 H 1.8-7.7 K/uL Lymphocytes # (Auto) 1.0 1.0-4.8 K/uL Monocytes # (Auto) 1.1 H 0.1-1.0 K/uL Eosinophils # (Auto) 0.01 0.00-0.70 K/uL Basophils # (Auto) 0.03 0.00-0.20 K/uL Absolute Immature Granulocyte (auto 0.07 0-1 K/uL Nucleated Red Blood Cells 0.0 0.0-0.19 % White Cell Morphology Comment See comments DIAGNOSTICS / RADIOLOGY: [ ] PROBLEM LIST : Unstageable ulcer to coccyx 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 Thank You for the consult and allowing us to participate in the care of this patient. ATTESTATION BY PHYSICIAN I have seen and examined the patient. I reviewed the documentation, medical decision making, and treatment plan as noted by the mid-level provider above. I agree with the findings and plan of care. SHAILESH REYNOLDS MD, MICHELLE A ELECTRICIAN MANAGER Jun 06, 2025 16:53
[2025-06-07] VITALS: BP 117/74; PULSE 99; RESP 18; TEMP 98.2
[2025-06-07 04:00] VITALS: BP 126/81; PULSE 94; RESP 18; TEMP 97.8
[2025-06-07 04:54] LABS: NUCLEATED RED BLOOD CELLS 0.0 % (0.0-0.19); PLATELET COUNT (AUTO) 186 K/uL (130-400); RED BLOOD CELL COUNT(AUTO) 4.32 MIL/uL (4.50-6.20); RED CELL DISTRIBUTION WIDTH 16.1 % (11.0-15.5); WHITE BLOOD COUNT (AUTO) 5.6 K/uL (4.8-10.8)
[2025-06-07 05:07] LABS: CREATININE 0.8 mg/dL (0.5-1.3); GLOMERULAR FILTR. RATE CALC 103.0 mL/min (>90); GLUCOSE,RANDOM 110.0 mg/dL (70-105); SODIUM SERUM 141.0 mmol/L (136-145); UREA NITROGEN, BLOOD 25.0 mg/dL (7-18)
[2025-06-07 08:00] VITALS: BP 126/86; PULSE 91; RESP 18; TEMP 97.6; O2SAT 94
[2025-06-07] MEDS: ARGIN/GLUT/CAHMB/COLLAG/MV-MIN 1 EACH POWD.PACK PO SCH (08:39)
[2025-06-07 12:00] VITALS: BP 126/69; PULSE 91; RESP 18; TEMP 97.7
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
[2025-06-07 16:00] VITALS: BP 101/58; PULSE 86; RESP 20; TEMP 97.9
--- NOTE | 2025-06-07 16:40 | NUR ---
CALLED [facility] AND REPORT GIVEN TO ANTHONY [place]. ALL CONCERNS AND QUESTIONS ANSWERED.
--- NOTE | 2025-06-07 18:20 | NUR ---
EMS TRANSPORT ARRIVED TO TRANSPORT PATIENT TO [facility]. MIDLINE LEFT IN PLACE PER [facility] REQUEST FOR CONTINUED IV ANTIBIOTICS. TELEMONITOR REMOVED. ALL BELONGINGS GATHERED AND TAKEN WITH PATIENT. ALL CONCERNS AND QUESTIONS ANSWERED. PATIENT TAKEN BY EMS ALERT AND ORIENTED X 4.
== END 2025-06-07 18:30 | DRG 329 ==
LOC: 3BH 13:32
PROVIDERS: ADMIT Internal Medicine Infectious Disease; ATTEND Internal Medicine Infectious Disease
PROC: 0D1N4Z4 Bypass Sigmoid Colon to Cutaneous, Percutaneous Endoscopic Approach (ICD-10-PCS; principal; 2025-06-03)
PROC: 0DNU4ZZ Release Omentum, Percutaneous Endoscopic Approach (ICD-10-PCS; 2025-06-03)
PROC: 05HY33Z Insertion of Infusion Device into Upper Vein, Percutaneous Approach (ICD-10-PCS; 2025-06-05)
DX: Z43.3 Encounter for attention to colostomy (principal); L89.154 Pressure ulcer of sacral region, stage 4; G82.20 Paraplegia, unspecified; Z16.24 Resistance to multiple antibiotics; K66.0 Peritoneal adhesions (postprocedural) (postinfection); D72.829 Elevated white blood cell count, unspecified; G30.9 Alzheimer's disease, unspecified; F02.80 Dementia in other diseases classified elsewhere, unspecified severity, without behavioral disturbance, psychotic disturbance, mood disturbance, and anxiety; K21.9 Gastro-esophageal reflux disease without esophagitis; E66.01 Morbid (severe) obesity due to excess calories; Z68.30 Body mass index [BMI] 30.0-30.9, adult; N31.9 Neuromuscular dysfunction of bladder, unspecified
CPT/HCPCS: 36415; 36556; 80048; 80053; 80202; 83735; 85025; 85027; 85610; 85730; 86850; 86870; 86900; 86901; 86905; 86922; 88304; C1894; G0378; J1650; J1956; J2185; J2250; J2405; J2550; J2704; J2710; J3010; J3490; J7120; Q0162; A4213; A4215; A4216; A4221; A4222; A4223; A4600; A4663; C1750; J0665; J0690; J3370; J3373